=== PATIENT | female | born 1985 | race Caucasian/White ===

== ENCOUNTER 2017-11-05 07:07 | Inpatient (IN) | payer OTHER ==
[2017-11-05] MEDS ORDERED: CARBOPROST 250 MCG/ML SOL IM PRN (14:57)
[2017-11-05] MEDS ORDERED: LACTATED RINGERS 1,000 ML IV PRN (14:57)
[2017-11-05] MEDS ORDERED: METHYLERGONOVINE MALEATE 0.2 MG/ML SOL IM PRN (14:57)
[2017-11-05] MEDS ORDERED: FENTANYL 100MCG/2ML SOL IV PRN (14:57)
[2017-11-05] MEDS ORDERED: OXYTOCIN 10000 MU/ML SOL IM PRN (14:57)
[2017-11-05] MEDS ORDERED: SODIUM CHLORIDE 0.9% FLUSH 10 ML SOL IV PRN (14:57)
[2017-11-05] MEDS ORDERED: MEPIVACAINE HCL 1% MPF 30 ML/VIAL SOL INFIL PRN (14:57)
[2017-11-05] MEDS: SODIUM CHLORIDE 0.9% FLUSH 10 ML SOL IV SCH (15:00)
[2017-11-05] MEDS ORDERED: BENZOCAINE/MENTHOL 1 SPR TOP PRN (23:37)
[2017-11-05] MEDS ORDERED: APAP/HYDROCODONE 325/5 TAB PO PRN (23:37)
[2017-11-05] MEDS ORDERED: METHYLERGONOVINE MALEATE 0.2 MG TAB PO PRN (23:37)
[2017-11-05] MEDS ORDERED: BISACODYL 10 MG SUP PR PRN (23:37)
[2017-11-05] MEDS ORDERED: WITCH HAZEL 1 EA PAD TOP PRN (23:37)
[2017-11-05] MEDS ORDERED: FLEET ENEMA PR PRN (23:37)
[2017-11-05] MEDS ORDERED: TEMAZEPAM 15MG 15 MG CAP PO PRN (23:37)
[2017-11-06] MEDS: IBUPROFEN 600 MG TAB PO PRN ×4 (00:49→22:15)
[2017-11-06] MEDS: SODIUM CHLORIDE 0.9% FLUSH 10 ML SOL IV SCH (01:40)
[2017-11-06 04:37] VITALS: RESP 18
[2017-11-06] MEDS ORDERED: SODIUM CHLORIDE 0.9% FLUSH 10 ML SOL IV SCH (09:00)
[2017-11-06] MEDS: DOCUSATE SODIUM 100 MG SGL PO SCH ×2 (09:08→22:00)
[2017-11-06] MEDS: MULTIVITAMIN2 1 EA TAB PO SCH (15:18)
[2017-11-06] MEDS: FOLIC ACID 1 MG TAB PO SCH (15:18)
[2017-11-07] MEDS: IBUPROFEN 600 MG TAB PO PRN ×2 (08:36→15:04)
[2017-11-07] MEDS: DOCUSATE SODIUM 100 MG SGL PO SCH (08:36)
[2017-11-07] MEDS: FOLIC ACID 1 MG TAB PO SCH (08:38)
[2017-11-07] MEDS: MULTIVITAMIN2 1 EA TAB PO SCH (08:38)
[2017-11-07 17:11] VITALS: BP 110/72; PULSE 79; TEMP 99.1; O2SAT 96
== END 2017-11-07 20:25 | disposition home or self-care (01) | DRG 560 ==
LOC: OB 07:07 → OBSVTOIN 07:07 → OB 18:09
PROVIDERS: ADMIT Family Medicine; ATTEND Family Medicine
PROC: 10E0XZZ Delivery of Products of Conception, External Approach (ICD-10-PCS; principal; 2017-11-05)
PROC: 10907ZC Drainage of Amniotic Fluid, Therapeutic from Products of Conception, Via Natural or Artificial Opening (ICD-10-PCS; 2017-11-05)
DX: O80 Encounter for full-term uncomplicated delivery (principal); Z86.19 Personal history of other infectious and parasitic diseases; Z37.0 Single live birth; Z3A.39 39 weeks gestation of pregnancy
CPT/HCPCS: 36415; 59025; 85018; J0670; J2590; A9270-GY